=== PATIENT | male | born 1940 | race Two or more races ===

== ENCOUNTER 2025-06-04 12:42 | Emergency (ER) | payer OTHER ==
[~2025-06-04] VITALS: Ht 162.6 cm; Wt 70.8 kg
[2025-06-04] MEDS ORDERED: LEVO-T75 MCG PO (13:29)
[2025-06-04] MEDS ORDERED: TOPROL XL50 M1 PO (13:29)
[2025-06-04] MEDS ORDERED: IRBESARTAN300 MG PO (13:29)
[2025-06-04] MEDS ORDERED: TAMS0.4C PO (13:30)
[2025-06-04] MEDS ORDERED: ATORVASTATIN CA40 MG PO (13:30)
[2025-06-04] MEDS ORDERED: GRALISE600 MG PO (13:30)
[2025-06-04] MEDS ORDERED: METFORMIN HCL1000 M2 PO (13:30)
[2025-06-04] MEDS ORDERED: FINASTERIDE5 MG PO (13:31)
[2025-06-04] MEDS ORDERED: SIMVASTATIN80 MG PO (13:31)
[2025-06-04] MEDS ORDERED: PLAVIX75 MG PO (13:31)
[2025-06-04] MEDS ORDERED: AMLODIPINE-OLM1 EAC2 PO (13:32)
[2025-06-04] MEDS ORDERED: HYDROCHLOROTHIA25 MG PO (13:32)
[2025-06-04] MEDS ORDERED: MORPHINE SULFATE 2 MG/ML SYRINGE IV ONE (14:45)
[2025-06-04] MEDS ORDERED: 0.9 % SODIUM CHLORIDE 1,000 ML IV ONE (14:45)
[2025-06-04] MEDS ORDERED: FAMOTIDINE/PF 20 MG/2 ML VIAL IV ONE (14:45)
[2025-06-04] MEDS ORDERED: ONDANSETRON HCL 2 MG/ML VIAL IV ONE (14:45)
[2025-06-04] MEDS ORDERED: ONDANSETRON HCL 2 MG/ML VIAL ONE (15:43)
[2025-06-04] MEDS ORDERED: FAMOTIDINE/PF 20 MG/2 ML VIAL ONE (15:43)
[2025-06-04 16:10] LABS: BASO % 0.8 % (0.1-1.2); EOS # 0.73 (0.04-0.54); EOS % 9.9 % (0.7-7.0); LYMPH # 2.41 (1.18-3.74); LYMPH % 32.7 % (19.3-53.1); MEAN PLATELET VOLUME 9.70 fl (9.4-12.4); MONO # 0.64 (0.24-0.82); MONO % 8.7 % (4.7-12.5); NEUT # 3.49 (1.56-6.13); NEUT % 47.5 % (34.0-71.1); RED CELL DISTRIBUTION WIDTH 13.0 % (11.6-14.4)
[2025-06-04 16:17] LABS: INR 1.11
[2025-06-04 16:33] LABS: ALT/SGPT 19 U/L (12-78); AST/SGOT 16 U/L (15-37); BILIRUBIN TOTAL 0.37 mg/dL (0.3-1.2); BUN CREA RATIO 13 (7.0-25.0); CREATININE SERUM 2.34 mg/dL (0.70-1.30); GFR 26.75; GLOBULINA 3.8 G/DL (2.4-3.5); GLUCOSE FASTING 112 mg/dL (65-100); OSMOLALITY SERUM 292 MOSM/KG (275-295)
[2025-06-04 16:46] LABS: URINE APPEARANCE Clear; URINE BILIRRUBIN Negative (NEGATIVE); URINE BLOOD Negative; URINE COLOR Yellow; URINE GLUCOSE Negative (NEGATIVE); URINE KETONE Negative (NEGATIVE); URINE LEUKOCYTE Trace; URINE NITRATE Negative; URINE PROTEIN Negative (NEGATIVE); URINE UROBILINOGEN 0.2 E.U./dl
[2025-06-04 16:49] LABS: URINE BACTERIA 9.6 uL (0.0-1933); URINE EPITHELIAL CELLS 1.5 uL (0.0-38.8); URINE WBC 2.1 uL (0.0-23.2)
[2025-06-04 16:54] LABS: URINE CAST 0.43 uL (0.0-1.40); URINE RBC 0.8 uL (0.0-20.8)
[2025-06-04] MEDS ORDERED: ENULOSE10 GM/15 M PO (17:28)
[2025-06-04] MEDS ORDERED: NA PHOS,M-B/NA PHOS,DI-BA 1 BOTTLE ENEMA RECTAL NR (17:30)
== END 2025-06-04 18:57 | disposition home or self-care (01) ==
LOC: ER 12:42
DX: K59.00 Constipation, unspecified (principal); R10.20 Pelvic and perineal pain unspecified side; I10 Essential (primary) hypertension; E11.9 Type 2 diabetes mellitus without complications; Z79.84 Long term (current) use of oral hypoglycemic drugs; Z88.8 Allergy status to other drugs, medicaments and biological substances
CPT/HCPCS: 36415; 74176; 93005; 96365; 96366; 99284; J2270; J2405; J3490; J7030